=== PATIENT | female | born 1970 | race Hispanic/Latino ===

== ENCOUNTER 2018-06-02 13:29 | Emergency (ER) | payer SELFPAY ==
[~2018-06-02] VITALS: Ht 165.1 cm; Wt 113.6 kg
[~2018-06-02 13:29] MED LIST: AUGMENTIN875 MG OR; LORTAB 5 OR
[2018-06-02 15:13] VITALS: BP 149/74
== END 2018-06-02 15:13 | disposition home or self-care (01) | DRG 556 ==
LOC: ED 13:29
DX: M25.562 Pain in left knee (principal)